=== PATIENT | female | born 1960 ===

== ENCOUNTER 2021-09-20 11:45 | Inpatient (IN) | payer OTHER ==
[~2021-09-20] VITALS: Ht 160 cm; Wt 58.1 kg
[2021-09-20] MEDS ORDERED: CLONAZEPAM2 M1 PO (14:30)
[2021-09-20] MEDS ORDERED: WELLBUTRIN SR150 MG PO (14:30)
[2021-09-20] MEDS ORDERED: SEROQUEL XR50 MG PO (14:32)
[2021-09-20] MEDS ORDERED: DICYCLOMINE HCL20 MG PO (14:32)
[2021-09-20] MEDS ORDERED: RESTORIL30 MG PO (14:32)
[2021-09-20] MEDS ORDERED: TRAZODONE HCL50 MG PO (14:33)
[2021-09-20] MEDS ORDERED: LEVOXYL25 MCG PO (16:31)
== END 2021-09-25 11:27 | disposition home or self-care (01) | DRG 735 ==
LOC: OB/GYN 09-23 05:38 → O/R 09-23 05:38 → SURH 09-23 11:45 → OB/GYN 09-23 15:41
PROVIDERS: ADMIT Obstetrics & Gynecology Gynecologic Oncology; ATTEND Obstetrics & Gynecology Gynecologic Oncology
PROC: 0UT90ZZ Resection of Uterus, Open Approach (ICD-10-PCS; 2021-09-23)
PROC: 0UT70ZZ Resection of Bilateral Fallopian Tubes, Open Approach (ICD-10-PCS; 2021-09-23)
PROC: 0UT20ZZ Resection of Bilateral Ovaries, Open Approach (ICD-10-PCS; 2021-09-23)
PROC: 0DBW0ZZ Excision of Peritoneum, Open Approach (ICD-10-PCS; 2021-09-23)
PROC: 0DBU0ZZ Excision of Omentum, Open Approach (ICD-10-PCS; 2021-09-23)
PROC: 3E1M38Z Irrigation of Peritoneal Cavity using Irrigating Substance, Percutaneous Approach (ICD-10-PCS; 2021-09-23)
PROC: 07TC0ZZ Resection of Pelvis Lymphatic, Open Approach (ICD-10-PCS; principal; 2021-09-23 13:15)
DX: C54.1 Malignant neoplasm of endometrium (principal); N84.0 Polyp of corpus uteri; N84.1 Polyp of cervix uteri; Z20.822 Contact with and (suspected) exposure to COVID-19